=== PATIENT | male | born 1940 | race Caucasian/White ===

== ENCOUNTER 2023-01-15 17:01 | Inpatient (IN) | payer MEDICARE ==
[2023-01-15] MEDS ORDERED: Acetaminophen 325 MG TAB PO PRN (20:02)
[2023-01-15 20:07] VITALS: BMI 24.4
[2023-01-15] MEDS ORDERED: Lactated Ringer's 1,000 ML IV SCH (20:15)
[2023-01-15] MEDS ORDERED: Gabapentin 300 MG CAP PO SCH (20:15)
[2023-01-15] MEDS ORDERED: clonazePAM 0.5 MG TAB PO SCH (20:15)
[2023-01-15 20:42] LABS: #Eosinphils 0.2 10x3/uL (0.0-0.5); #Monocytes 0.9 10x3/uL (0.0-1.1); #Neutrophils 6.9 10x3/uL (1.5-8.4); %Basophils 0.3 % (0.0-2.0); %Eosinophils 2.4 % (0.0-6.0); %Lymphocytes 10.8 % (18.0-47.0); %Monocytes 9.6 % (0.0-10.0); %Neutrophils 76.5 % (40.0-75.0); Hematocrit 34.3 % (38.8-50.0); Hemoglobin 11.5 g/dL (13.5-17.5); Mean Corpuscular HGB CONC 33.5 g/dL (32.0-36.0); Mean Corpuscular Hemoglobin 31.1 pg (27.0-33.0); Mean Corpuscular Volume 92.7 fl (81.2-95.1); Mean Platelet Volume 11.1 fl (7.4-10.4); Platelet Count 180 10x3/uL (150-450); RBC Distribution Width 13.2 % (11.5-14.5); White Blood Cell (WBC) Count 9.1 10x3/uL (3.5-10.5)
[2023-01-15] MEDS: Tamsulosin HCl 0.4 MG CAP PO SCH (20:49)
[2023-01-15] MEDS: Heparin 5,000 UNITS/ML VIAL SC SCH (20:50)
[2023-01-15 20:59] LABS: ALT (SGPT) 230 U/L (8-55); AST (SGOT) 267 U/L (5-34); Alkaline Phosphatase 49 U/L (40-110); Anion Gap 16 mmol/L (10-20); BUN (Urea Nitrogen) 46 mg/dL (8.4-25.7); Bilirubin, Total 0.8 mg/dL (0.2-1.2); Calc. Creatinine Clearance 14 mL/min (70-130); Calcium 8.5 mg/dL (7.8-10.44); Carbon Dioxide 31 mmol/L (23-31); Chloride 100 mmol/L (98-107); Estimated GFR 12; Globulin 2.3 g/dL (2.4-3.5); Glucose 85 mg/dL (83-110); Magnesium 1.6 mg/dL (1.6-2.6); Phosphorus 3.9 mg/dL (2.3-4.7); Potassium 3.6 mmol/L (3.5-5.1); Protein, Total 5.3 g/dL (5.8-8.1); Sodium 143 mmol/L (136-145)
[2023-01-15 21:16] LABS: Ferritin 198.62 ng/mL (22-322); Thyroid Stimulating Hormone 2.0605 uIU/mL (0.35-4.94)
[2023-01-15 22:21] LABS: Bilirubin Neg (Negative); Blood, Urine 150 (Negative); Clarity Clear (Clear); Glucose, Urine (Dipstick) Normal (Negative); Ketone, Urine Negative (Negative); Leukocyte 100 (Negative); Nitrite Negative (Negative); Protein, Urine (Dipstick) 15 mg/dl (Neg-Trace); Urobilinogen Normal mg/dL (Less than 2)
[2023-01-15] MEDS ORDERED: diphenhydrAMINE 25 MG CAP PO SCH ×2 (22:30→23:45)
[2023-01-15 22:39] LABS: Bacteria/HPF None Seen HPF (None Seen); CAUTI Indications for Culture Alt mental st,lethar; Squamous Epithelial None Seen HPF (0-3); Urine Culture Reflex No No; WBC/HPF 0-3 HPF (0-3)
[2023-01-16] MEDS ORDERED: Sodium Chloride 0.9% 1,000 ML IV SCH (08:30)
[2023-01-16] MEDS: Heparin 5,000 UNITS/ML VIAL SC SCH ×3 (08:31→20:50)
[2023-01-16] MEDS: DULoxetine 30 MG CAP PO SCH (08:36)
[2023-01-16] MEDS: Aspirin 81 mg Enteric Coated Tablet PO SCH (08:36)
[2023-01-16] MEDS: Fluticasone Propionate Nasal Spray 16 gm Bottle NASAL SCH (08:37)
[2023-01-16] MEDS: Sodium Chloride 0.9% 1,000 ML IV SCH ×2 (09:21→19:58)
[2023-01-16] MEDS: Tamsulosin HCl 0.4 MG CAP PO SCH (20:52)
[2023-01-17] MEDS: Sodium Chloride 0.9% 1,000 ML IV SCH ×2 (04:24→08:59)
[2023-01-17 05:12] LABS: #Eosinphils 0.3 10x3/uL (0.0-0.5); #Monocytes 0.8 10x3/uL (0.0-1.1); %Basophils 0.3 % (0.0-2.0); %Eosinophils 3.5 % (0.0-6.0); %Lymphocytes 14.8 % (18.0-47.0); %Monocytes 11.3 % (0.0-10.0); %Neutrophils 69.7 % (40.0-75.0); Hematocrit 32.3 % (38.8-50.0); Hemoglobin 10.8 g/dL (13.5-17.5); Mean Corpuscular HGB CONC 33.4 g/dL (32.0-36.0); Mean Corpuscular Hemoglobin 30.5 pg (27.0-33.0); Mean Corpuscular Volume 91.2 fl (81.2-95.1); Mean Platelet Volume 10.5 fl (7.4-10.4); Platelet Count 177 10x3/uL (150-450); RBC Distribution Width 13.1 % (11.5-14.5); Red Blood Cell (RBC) Count 3.54 10x6/uL (4.32-5.72); White Blood Cell (WBC) Count 7.2 10x3/uL (3.5-10.5)
[2023-01-17 05:19] LABS: ALT (SGPT) 149 U/L (8-55); AST (SGOT) 115 U/L (5-34); Albumin 2.7 g/dL (3.4-4.8); Alkaline Phosphatase 40 U/L (40-110); Anion Gap 14 mmol/L (10-20); BUN (Urea Nitrogen) 41 mg/dL (8.4-25.7); Bilirubin, Total 0.6 mg/dL (0.2-1.2); CK (CPK) 926 U/L (30-200); Calc. Creatinine Clearance 18 mL/min (70-130); Calcium 8.1 mg/dL (7.8-10.44); Carbon Dioxide 30 mmol/L (23-31); Chloride 106 mmol/L (98-107); Estimated GFR 16; Glucose 89 mg/dL (83-110); Potassium 3.5 mmol/L (3.5-5.1); Protein, Total 4.7 g/dL (5.8-8.1); Sodium 146 mmol/L (136-145)
[2023-01-17] MEDS: Heparin 5,000 UNITS/ML VIAL SC SCH ×3 (09:00→21:45)
[2023-01-17] MEDS: Aspirin 81 mg Enteric Coated Tablet PO SCH (09:00)
[2023-01-17] MEDS: DULoxetine 30 MG CAP PO SCH (09:00)
[2023-01-17] MEDS: traMADol HCl 50 MG TAB PO PRN ×2 (09:00→21:58)
[2023-01-17] MEDS: Fluticasone Propionate Nasal Spray 16 gm Bottle NASAL SCH (09:01)
[2023-01-17] MEDS ORDERED: Polyethylene Glycol 3350 17 GM Packet PO SCH (11:00)
[2023-01-17] MEDS: Albumin 25% 25 GM/100 ML BOT IVPB SCH ×2 (11:15→17:33)
[2023-01-17] MEDS: Sodium Chloride 0.45% 1,000 ML IV SCH ×2 (11:20→21:45)
[2023-01-17] MEDS: Gabapentin 300 MG CAP PO SCH ×2 (15:02→21:45)
[2023-01-17] MEDS: clonazePAM 0.5 MG TAB PO SCH ×2 (15:02→21:46)
[2023-01-17 18:42] LABS: Creatinine, Urine 41.07 mg/dL (63-166); Protein, Urine Random Quant Less than 10 mg/dL (1-14)
[2023-01-17] MEDS ORDERED: Calcium Carbonate 500 MG ChewTAB PO PRN (21:28)
[2023-01-17] MEDS: Tamsulosin HCl 0.4 MG CAP PO SCH (21:45)
[2023-01-17] MEDS: Amitriptyline HCl 25 MG TAB PO SCH (21:46)
[2023-01-18] MEDS: Albumin 25% 25 GM/100 ML BOT IVPB SCH ×2 (01:37→07:11)
[2023-01-18 04:18] LABS: #Eosinphils 0.3 10x3/uL (0.0-0.5); #Monocytes 0.7 10x3/uL (0.0-1.1); #Neutrophils 3.8 10x3/uL (1.5-8.4); %Basophils 0.3 % (0.0-2.0); %Eosinophils 4.3 % (0.0-6.0); %Lymphocytes 20.4 % (18.0-47.0); %Monocytes 11.5 % (0.0-10.0); Hematocrit 28.7 % (38.8-50.0); Hemoglobin 9.7 g/dL (13.5-17.5); Mean Corpuscular HGB CONC 33.8 g/dL (32.0-36.0); Mean Corpuscular Hemoglobin 31.1 pg (27.0-33.0); Mean Platelet Volume 10.9 fl (7.4-10.4); Platelet Count 148 10x3/uL (150-450); RBC Distribution Width 13.2 % (11.5-14.5); Red Blood Cell (RBC) Count 3.12 10x6/uL (4.32-5.72); White Blood Cell (WBC) Count 6.1 10x3/uL (3.5-10.5)
[2023-01-18 04:25] LABS: ALT (SGPT) 106 U/L (8-55); AST (SGOT) 65 U/L (5-34); Albumin 3.3 g/dL (3.4-4.8); Alkaline Phosphatase 33 U/L (40-110); Anion Gap 14 mmol/L (10-20); BUN (Urea Nitrogen) 33 mg/dL (8.4-25.7); Bilirubin, Total 0.7 mg/dL (0.2-1.2); Calc. Creatinine Clearance 24 mL/min (70-130); Calcium 8.3 mg/dL (7.8-10.44); Carbon Dioxide 28 mmol/L (23-31); Chloride 106 mmol/L (98-107); Estimated GFR 22; Globulin 1.7 g/dL (2.4-3.5); Glucose 79 mg/dL (83-110); Potassium 3.1 mmol/L (3.5-5.1); Sodium 145 mmol/L (136-145)
[2023-01-18] MEDS ORDERED: Potassium Bicarbonate/Cit Ac 20 MEQ TAB PO SCH (10:00)
[2023-01-18] MEDS: Polyethylene Glycol 3350 17 GM Packet PO SCH (10:43)
[2023-01-18] MEDS: Atorvastatin Calcium 20 MG TAB PO SCH (10:43)
[2023-01-18] MEDS: clonazePAM 0.5 MG TAB PO SCH ×3 (10:44→21:39)
[2023-01-18] MEDS: DULoxetine 30 MG CAP PO SCH (10:44)
[2023-01-18] MEDS: Gabapentin 300 MG CAP PO SCH ×3 (10:45→21:32)
[2023-01-18] MEDS: Fluticasone Propionate Nasal Spray 16 gm Bottle NASAL SCH (10:45)
[2023-01-18] MEDS: Aspirin 81 mg Enteric Coated Tablet PO SCH (10:45)
[2023-01-18] MEDS: Heparin 5,000 UNITS/ML VIAL SC SCH ×3 (10:46→21:39)
[2023-01-18] MEDS ORDERED: Ipratropium/Albuterol 3 ML NEB NEB PRN (11:09)
[2023-01-18] MEDS ORDERED: NIFEdipine XL 30 MG ER.TAB PO SCH (11:15)
[2023-01-18] MEDS: Sodium Chloride 0.45% 1,000 ML IV SCH (13:33)
[2023-01-18] MEDS: Tamsulosin HCl 0.4 MG CAP PO SCH (20:16)
[2023-01-18] MEDS: Amitriptyline HCl 25 MG TAB PO SCH (21:33)
[2023-01-19 03:58] LABS: #Eosinphils 0.3 10x3/uL (0.0-0.5); #Monocytes 0.8 10x3/uL (0.0-1.1); #Neutrophils 4.9 10x3/uL (1.5-8.4); %Basophils 0.3 % (0.0-2.0); %Eosinophils 4.1 % (0.0-6.0); %Lymphocytes 14.2 % (18.0-47.0); %Monocytes 11.7 % (0.0-10.0); %Neutrophils 69.4 % (40.0-75.0); Hematocrit 32.7 % (38.8-50.0); Hemoglobin 10.8 g/dL (13.5-17.5); Mean Corpuscular Hemoglobin 30.2 pg (27.0-33.0); Mean Corpuscular Volume 91.3 fl (81.2-95.1); Mean Platelet Volume 10.4 fl (7.4-10.4); Platelet Count 156 10x3/uL (150-450); RBC Distribution Width 13.2 % (11.5-14.5); Red Blood Cell (RBC) Count 3.58 10x6/uL (4.32-5.72)
[2023-01-19 04:28] LABS: ALT (SGPT) 94 U/L (8-55); AST (SGOT) 48 U/L (5-34); Albumin 3.6 g/dL (3.4-4.8); Alkaline Phosphatase 41 U/L (40-110); Anion Gap 13 mmol/L (10-20); BUN (Urea Nitrogen) 27 mg/dL (8.4-25.7); Bilirubin, Total 0.9 mg/dL (0.2-1.2); Calc. Creatinine Clearance 30 mL/min (70-130); Calcium 8.5 mg/dL (7.8-10.44); Carbon Dioxide 29 mmol/L (23-31); Chloride 105 mmol/L (98-107); Estimated GFR 30; Globulin 1.9 g/dL (2.4-3.5); Glucose 86 mg/dL (83-110); Potassium 3.1 mmol/L (3.5-5.1); Protein, Total 5.5 g/dL (5.8-8.1); Sodium 144 mmol/L (136-145)
[2023-01-19] MEDS ORDERED: Potassium Bicarbonate/Cit Ac 20 MEQ TAB PO SCH (09:15)
[2023-01-19] MEDS: Polyethylene Glycol 3350 17 GM Packet PO SCH (10:01)
[2023-01-19] MEDS: Atorvastatin Calcium 20 MG TAB PO SCH (10:02)
[2023-01-19] MEDS: DULoxetine 30 MG CAP PO SCH (10:02)
[2023-01-19] MEDS: Heparin 5,000 UNITS/ML VIAL SC SCH ×3 (10:03→21:24)
[2023-01-19] MEDS: Gabapentin 300 MG CAP PO SCH ×3 (10:03→21:24)
[2023-01-19] MEDS: Aspirin 81 mg Enteric Coated Tablet PO SCH (10:03)
[2023-01-19] MEDS: clonazePAM 0.5 MG TAB PO SCH ×3 (10:04→21:24)
[2023-01-19] MEDS: Fluticasone Propionate Nasal Spray 16 gm Bottle NASAL SCH (10:04)
[2023-01-19] MEDS: NIFEdipine XL 30 MG ER.TAB PO SCH (10:04)
[2023-01-19] MEDS: Tamsulosin HCl 0.4 MG CAP PO SCH (14:55)
[2023-01-19] MEDS: Amitriptyline HCl 25 MG TAB PO SCH (21:24)
[2023-01-20 03:34] LABS: #Eosinphils 0.2 10x3/uL (0.0-0.5); #Monocytes 0.9 10x3/uL (0.0-1.1); #Neutrophils 4.6 10x3/uL (1.5-8.4); %Basophils 0.4 % (0.0-2.0); %Eosinophils 3.5 % (0.0-6.0); %Lymphocytes 16.9 % (18.0-47.0); %Monocytes 12.5 % (0.0-10.0); %Neutrophils 66.1 % (40.0-75.0); Hematocrit 33.7 % (38.8-50.0); Hemoglobin 11.1 g/dL (13.5-17.5); Mean Corpuscular HGB CONC 32.9 g/dL (32.0-36.0); Mean Corpuscular Hemoglobin 30.2 pg (27.0-33.0); Mean Corpuscular Volume 91.8 fl (81.2-95.1); Mean Platelet Volume 10.9 fl (7.4-10.4); Platelet Count 171 10x3/uL (150-450); RBC Distribution Width 13.2 % (11.5-14.5); Red Blood Cell (RBC) Count 3.67 10x6/uL (4.32-5.72); White Blood Cell (WBC) Count 6.9 10x3/uL (3.5-10.5)
[2023-01-20 04:25] LABS: ALT (SGPT) 81 U/L (8-55); AST (SGOT) 37 U/L (5-34); Albumin 3.6 g/dL (3.4-4.8); Alkaline Phosphatase 45 U/L (40-110); Anion Gap 14 mmol/L (10-20); BUN (Urea Nitrogen) 19 mg/dL (8.4-25.7); Bilirubin, Total 0.8 mg/dL (0.2-1.2); Calc. Creatinine Clearance 37 mL/min (70-130); Calcium 8.5 mg/dL (7.8-10.44); Carbon Dioxide 29 mmol/L (23-31); Chloride 105 mmol/L (98-107); Estimated GFR 38; Globulin 2.3 g/dL (2.4-3.5); Glucose 128 mg/dL (83-110); Potassium 3.1 mmol/L (3.5-5.1); Protein, Total 5.9 g/dL (5.8-8.1); Sodium 145 mmol/L (136-145)
[2023-01-20] MEDS ORDERED: Potassium Bicarbonate/Cit Ac 20 MEQ TAB PO SCH (08:15)
[2023-01-20] MEDS: Heparin 5,000 UNITS/ML VIAL SC SCH ×3 (08:51→20:11)
[2023-01-20] MEDS: NIFEdipine XL 30 MG ER.TAB PO SCH (08:56)
[2023-01-20] MEDS: Aspirin 81 mg Enteric Coated Tablet PO SCH (08:57)
[2023-01-20] MEDS: clonazePAM 0.5 MG TAB PO SCH ×3 (08:57→20:10)
[2023-01-20] MEDS: Polyethylene Glycol 3350 17 GM Packet PO SCH (08:57)
[2023-01-20] MEDS: DULoxetine 30 MG CAP PO SCH (08:57)
[2023-01-20] MEDS: Gabapentin 300 MG CAP PO SCH ×3 (08:58→20:10)
[2023-01-20] MEDS: Atorvastatin Calcium 20 MG TAB PO SCH (08:58)
[2023-01-20] MEDS: Fluticasone Propionate Nasal Spray 16 gm Bottle NASAL SCH (08:59)
[2023-01-20] MEDS: Tamsulosin HCl 0.4 MG CAP PO SCH (15:49)
[2023-01-20 17:12] VITALS: BP 115/64; TEMP 97.6
[2023-01-20] MEDS: Amitriptyline HCl 25 MG TAB PO SCH (20:10)
== END 2023-01-20 20:19 | DRG 565 ==
LOC: CSHTELE 17:01
PROVIDERS: ADMIT Internal Medicine; ATTEND Internal Medicine
DX: T79.6XXA Traumatic ischemia of muscle, initial encounter (principal); E87.1 Hypo-osmolality and hyponatremia; N17.9 Acute kidney failure, unspecified; N18.4 Chronic kidney disease, stage 4 (severe); I25.10 Atherosclerotic heart disease of native coronary artery without angina pectoris; E78.5 Hyperlipidemia, unspecified; G62.9 Polyneuropathy, unspecified; J44.9 Chronic obstructive pulmonary disease, unspecified; N40.1 Benign prostatic hyperplasia with lower urinary tract symptoms; R39.11 Hesitancy of micturition; I12.9 Hypertensive chronic kidney disease with stage 1 through stage 4 chronic kidney disease, or unspecified chronic kidney disease; E88.09 Other disorders of plasma-protein metabolism, not elsewhere classified; D63.8 Anemia in other chronic diseases classified elsewhere; E87.6 Hypokalemia; X58.XXXA Exposure to other specified factors, initial encounter; Z95.1 Presence of aortocoronary bypass graft; Z90.49 Acquired absence of other specified parts of digestive tract; Z98.890 Other specified postprocedural states; Z87.891 Personal history of nicotine dependence; Y92.9 Unspecified place or not applicable
CPT/HCPCS: 36415; 71045; 76770; 80053; 81001; 82274; 82550; 82570; 82728; 83735; 84100; 84156; 84443; 85025; 93005; 93010; 93306; 94640; 94760; 94762; J1644; J7050; J7120; J7620; P9047